=== PATIENT | male | born 1995 | race Caucasian/White ===

== ENCOUNTER 2020-07-15 10:32 | Day surgery (SDC) | payer BC ==
[2020-07-15] MEDS ORDERED: Lidocaine 1% 30 ML SDV ONE (11:23)
[2020-07-15] MEDS ORDERED: Bupivacaine 0.25% 10 ML SDV ONE (11:23)
[2020-07-15 13:18] VITALS: BP 165/86; PULSE 65
--- NOTE | 2020-07-15 13:49 | CR ---
Left third finger: 3 views centered to the left third finger were obtained utilizing C-arm device. Study shows a clamp around the metallic foreign body within the third finger. Second film shows removal of the foreign body. Mild soft tissue swelling is noted. Fluoroscopy time is given as 14.8 seconds. Impression: 1. Successful procedural study as noted above. Diagnostic code #2
--- NOTE | 2020-07-25 13:31 | PCM.OPNOTE ---
- General Post-Op/Procedure Note Date of Surgery/Procedure: 07/15/20 Operative Procedure(s): left long finger foreign body removal Pre Op Diagnosis: left long finger foreign body Post-Op Diagnosis: Same Anesthesia Technique: Local Primary Surgeon: Jayy Lee Travel Pt: Helene Earl in mLs: 5 Complications: None Condition: Good
--- NOTE | 2020-07-25 14:01 | OR ---
DATE OF OPERATION: 07/15/2020 SURGEON: Jayy Lee MD OPERATION PERFORMED: Left long finger foreign body removal. PREOPERATIVE DIAGNOSIS: Left long finger foreign body. POSTOPERATIVE DIAGNOSIS: Left long finger foreign body. ANESTHESIA: Local only. MANAGEMENT INTERN: Helene Earl PA-C. ESTIMATED BLOOD LOSS: 5 mL. COMPLICATIONS: None. CONDITION: Stable. DESCRIPTION OF PROCEDURE: The patient was identified in the preoperative holding area. Proper site was marked and identified by the surgeon. The patient was taken back to the operating theater where after adequate anesthesia, left upper extremity was sterilely prepped and draped in the usual sterile fashion. OR time-out was performed. The patient received 2 g IV Ancef. 1% lidocaine without epi and 0.25% marcaine were used for a digital block. At this time, utilizing C-arm fluoroscopy, I was able to pinpoint exactly where the foreign body was. It was found to be in the extensor tendon sheath of the left long finger. I was able to utilize the previous small focal where the foreign body had entered. I then used a small mosquito clamp to separate the tissues into the extensor tendon sheath. I was able to then utilizing C-arm fluoroscopy, find the foreign body, placed the mosquito around it and extracted from the previous area where to come through. At this time, I irrigated 1 L of normal saline through that small incisional area. I then used 4-0 nylon sutures for closure of the skin. The patient had sterile soft dressing applied. Tolerated the procedure well and sent to PACU in stable condition. MMODAL /[id number]
== END 2020-07-15 13:07 | disposition home or self-care (01) ==
LOC: JD.SDS 10:32
PROVIDERS: ATTEND Orthopaedic Surgery
DX: S60.453A Superficial foreign body of left middle finger, initial encounter (principal)
CPT/HCPCS: 20525; 76000; 87641; J3490